=== PATIENT | female | born 1960 | race Caucasian/White ===

== ENCOUNTER 2016-09-14 05:06 | Emergency (ER) | payer MEDICARE ==
[~2016-09-14 05:06] MED LIST: ALLER-EASE180 MG PO; ASPIRIN CHEWABL81 MG PO; CITALOPRAM HBR40 MG PO; LAMICTAL TAB 1100 MG PO; LISINOPRIL20 MG PO; METOPROLOL TART25 MG PO; TRAZODONE HCL300 MG PO
[2016-09-14 06:33] LABS: HEMOGLOBIN 13.4 gm/dl (12.3-15.3); RED BLOOD COUNT 4.15 M/UL (4.00-5.10)
[2016-09-14 06:53] LABS: BUN/CREATININE RATIO 27 (0-10)
== END 2016-09-14 14:06 | disposition home or self-care (01) ==
LOC: ER1 05:06
PROVIDERS: Family Medicine
DX: R07.89 Other chest pain (principal); H81.399 Other peripheral vertigo, unspecified ear; I10 Essential (primary) hypertension; Z88.0 Allergy status to penicillin; Z88.5 Allergy status to narcotic agent; Z79.899 Other long term (current) drug therapy
CPT/HCPCS: 36415; 70450; 71010; 80053; 81001; 82550; 82553; 83690; 83874; 84484; 85025; 93005; 96374; 99285; J1200

== ENCOUNTER 2016-10-01 19:42 | Emergency (ER) | payer MEDICARE ==
[2016-10-01 20:18] LABS: HEMOGLOBIN 12.4 gm/dl (12.3-15.3); RED BLOOD COUNT 3.84 M/UL (4.00-5.10); WHITE BLOOD COUNT 5.2 K/UL (4.5-11.0)
[2016-10-01 20:53] LABS: BUN/CREATININE RATIO 19 (0-10)
== END 2016-10-02 01:22 | disposition home or self-care (01) ==
LOC: ER1 19:42
PROVIDERS: Family Medicine
DX: R07.89 Other chest pain (principal); R00.0 Tachycardia, unspecified; I10 Essential (primary) hypertension; F31.9 Bipolar disorder, unspecified; Z88.0 Allergy status to penicillin; Z79.899 Other long term (current) drug therapy
CPT/HCPCS: 36415; 71010; 80053; 82550; 82553; 83874; 84484; 85025; 85379; 93005; 96361; 96374; 99285; J1200

== ENCOUNTER 2016-10-20 02:11 | Emergency (ER) | payer MEDICARE ==
[2016-10-20 05:01] LABS: HEMOGLOBIN 12.9 gm/dl (12.3-15.3); RED BLOOD COUNT 4.1 M/UL (4.00-5.10); WHITE BLOOD COUNT 6.8 K/UL (4.5-11.0)
[2016-10-20 05:22] LABS: BUN/CREATININE RATIO 17 (0-10)
== END 2016-10-20 04:38 | disposition home or self-care (01) ==
LOC: ER1 02:11
PROVIDERS: Emergency Medicine
DX: Z53.21 Procedure and treatment not carried out due to patient leaving prior to being seen by health care provider (principal)
CPT/HCPCS: 36415; 80053; 81001; 83690; 83880; 84484; 85025; 85379; 85610; 85730; 93005; 99285

== ENCOUNTER 2016-11-14 11:44 | Emergency (ER) | payer MEDICARE | END 2016-11-14 13:00 | disposition home or self-care (01) | LOC: ER1 11:44 | DX: T78.40XA Allergy, unspecified, initial encounter (principal); I42.9 Cardiomyopathy, unspecified; Z90.49 Acquired absence of other specified parts of digestive tract; Z79.899 Other long term (current) drug therapy; X58.XXXA Exposure to other specified factors, initial encounter; Z88.0 Allergy status to penicillin; Z88.5 Allergy status to narcotic agent; Z88.8 Allergy status to other drugs, medicaments and biological substances | CPT/HCPCS: 99282; Q0177 ==

== ENCOUNTER 2016-11-19 19:26 | Emergency (ER) | payer MEDICARE ==
[2016-11-19 20:34] LABS: HEMOGLOBIN 13.7 gm/dl (12.3-15.3); RED BLOOD COUNT 4.35 M/UL (4.00-5.10); WHITE BLOOD COUNT 6.9 K/UL (4.5-11.0)
[2016-11-19 21:05] LABS: BUN/CREATININE RATIO 18 (0-10)
== END 2016-11-19 19:36 | disposition home or self-care (01) ==
LOC: ER1 19:26
PROVIDERS: Emergency Medicine
DX: R10.9 Unspecified abdominal pain (principal); K85.90 Acute pancreatitis without necrosis or infection, unspecified; Z88.0 Allergy status to penicillin; Z88.5 Allergy status to narcotic agent; Z88.8 Allergy status to other drugs, medicaments and biological substances
CPT/HCPCS: 36415; 71010; 80053; 81001; 82550; 82553; 83690; 83874; 84484; 85025; 87086; 96361; 96374; 96375; 99284; J2270; J2405

== ENCOUNTER 2016-11-25 21:13 | Emergency (ER) | payer MEDICARE ==
[2016-11-25 22:16] LABS: HEMOGLOBIN 13.2 gm/dl (12.3-15.3); RED BLOOD COUNT 4.21 M/UL (4.00-5.10); WHITE BLOOD COUNT 6.6 K/UL (4.5-11.0)
[2016-11-25 22:39] LABS: BUN/CREATININE RATIO 20 (0-10)
== END 2016-11-26 01:05 | disposition home or self-care (01) ==
LOC: ER1 21:13
PROVIDERS: Physician Assistant
DX: F41.0 Panic disorder [episodic paroxysmal anxiety] (principal); R07.89 Other chest pain; Z88.0 Allergy status to penicillin; Z88.5 Allergy status to narcotic agent; Z88.8 Allergy status to other drugs, medicaments and biological substances
CPT/HCPCS: 36415; 71010; 80053; 81001; 82550; 82553; 83874; 83880; 84484; 85025; 85379; 87086; 93005; 96374; 99285; J1200

== ENCOUNTER 2016-12-04 18:19 | Observation (INO) | payer MEDICARE ==
[~2016-12-04] VITALS: Ht 157.5 cm; Wt 100.7 kg
[2016-12-04 18:44] LABS: HEMOGLOBIN 12.3 gm/dl (12.3-15.3); RED BLOOD COUNT 3.99 M/UL (4.00-5.10); WHITE BLOOD COUNT 4.5 K/UL (4.5-11.0)
[2016-12-04 19:37] LABS: BUN/CREATININE RATIO 20 (0-10)
== END 2016-12-05 21:06 | disposition home or self-care (01) ==
LOC: ER1 18:19 → ZEROF 23:15 → MED SURG 4 23:15
PROVIDERS: Specialist/Technologist Athletic Trainer; ADMIT Internal Medicine
DX: R07.89 Other chest pain (principal); I10 Essential (primary) hypertension; R51 Headache; J45.909 Unspecified asthma, uncomplicated; Z86.39 Personal history of other endocrine, nutritional and metabolic disease; Z86.73 Personal history of transient ischemic attack (TIA), and cerebral infarction without residual deficits; Z87.11 Personal history of peptic ulcer disease; Z88.0 Allergy status to penicillin; Z88.5 Allergy status to narcotic agent; Z88.6 Allergy status to analgesic agent; Z88.8 Allergy status to other drugs, medicaments and biological substances; Z79.82 Long term (current) use of aspirin; Z79.899 Other long term (current) drug therapy; Z98.84 Bariatric surgery status
CPT/HCPCS: 36415; 71010; 78452; 80053; 81001; 82550; 82553; 83874; 84484; 85025; 85379; 87086; 93005; 93017; 96374; 96375; 96376; 99285; A9502; G0378; J1200; J1885; J2270; J2405; J2550; J2785; J7040; J7050; Q0163